=== PATIENT | female | born 1930 | race Caucasian/White ===

== ENCOUNTER 2017-10-23 09:54 | Emergency (ER) | payer MEDICARE, OTHER ==
[~2017-10-23] VITALS: Ht 144.7 cm; Wt 56.7 kg
[~2017-10-23 09:54] MED LIST: ANTIVERT/2525 MG PO; ARICEPT10 MG PO; B12,B-12,B 12500 MC1 PO; BLOOD PRESSURE MED; CHOLESTROL PO; CIPROFLOXACIN250 MG PO; Coumadin5 MG PO; DYAZIDE 25 MG-31 CAP PO; LOPRESSOR25 MG PO; Lopressor25 MG PO; MACROBID100 M1 PO; NASACORT55 MCG/ACT NAS; NORVASC5 MG PO; PRAVACHOL20 MG PO; ZYVOX600 MG PO
[2017-10-23 10:44] VITALS: BP 155/93
[2017-10-23 13:35] LABS: BILIRUBIN NEGATIVE (NEGATIVE); BLOOD NEGATIVE (NEGATIVE); CLARITY CLEAR (CLEAR); COLOR YELLOW (YELLOW); GLUCOSE NEGATIVE (NEGATIVE); KETONE NEGATIVE (NEGATIVE); LEUKO ESTERASE NEGATIVE (NEGATIVE); NITRITE NEGATIVE (NEGATIVE); PH 5.5 (5.0-9.0); UROBILINOGEN 0.2 E.U./dl (0.2-1.0)
[2017-10-23 13:46] LABS: EPITHELIAL CELLS 0-2; WBC 0-2 wbc/hpf (0-5)
== END 2017-10-23 14:03 | disposition home or self-care (01) ==
LOC: ED 09:54
PROVIDERS: Physician Assistant
DX: R07.81 Pleurodynia (principal); Z90.49 Acquired absence of other specified parts of digestive tract; Z90.710 Acquired absence of both cervix and uterus; Z79.899 Other long term (current) drug therapy; Z79.01 Long term (current) use of anticoagulants; Z88.0 Allergy status to penicillin; Z88.2 Allergy status to sulfonamides

== ENCOUNTER 2018-09-21 02:51 | Inpatient (IN) | payer OTHER ==
[2018-09-21] VITALS (13 sets, daily range): BP systolic 130–194; BP diastolic 61–109
[~2018-09-21] VITALS: Ht 157.4 cm; Wt 58.3 kg
[2018-09-21] MEDS ORDERED: ATIVAN0.5 MG PO (03:50)
[2018-09-21] MEDS ORDERED: LOPRESSOR50 M1 PO (03:52)
[2018-09-21] MEDS ORDERED: RISPERIDONE0.25 M2 PO (03:53)
[2018-09-21] MEDS ORDERED: TRAMADOL HCL50 MG PO (03:55)
[2018-09-21] MEDS ORDERED: VITAMIN D5000 UNIT PO (05:42)
[2018-09-21] MEDS ORDERED: PROCTOZONE-HC30 GM R (05:43)
[2018-09-21] MEDS ORDERED: MAPAP500 M1 PO (05:45)
[2018-09-21] MEDS ORDERED: RISAMINE OINTM113 GM T (05:47)
[2018-09-21] MEDS ORDERED: ZOLOFT25 MG PO (05:48)
[2018-09-21] MEDS ORDERED: RIVASTIGMINE TAR3 M1 PO (05:48)
[2018-09-21 06:20] LABS: BASO % 0.4 % (0.0-1.0); EOS % 0.3 % (1.0-4.0); HEMATOCRIT 42.9 % (37.0-47.0); LYMPH % 9.8 % (27.0-41.0); MEAN CELL VOLUME 94.1 fl (81.0-99.0); MEAN CORPUSCULAR HGB 28.5 pg (27.0-31.0); MEAN CORPUSCULAR HGB CONC 30.3 g/dl (33.0-37.0); MEAN PLATELET VOLUME 9.7 fl (9.6-12.3); MONO # 0.7 10*3/uL (0.1-1.0); MONO % 6.9 % (3.0-9.0); NEUT # 8.6 10*3/uL (2.3-7.9); NEUT % 82.1 % (47.0-73.0); PLATELET COUNT AUTOMATED 169 10*3/uL (130-400); RED BLOOD COUNT 4.56 10*6/uL (4.10-5.10); RED CELL DISTRI WIDTH 13.7 % (0-14.5); WHITE BLOOD COUNT 10.5 10*3/uL (4.8-10.8)
[2018-09-21 06:54] LABS: ACT PARTIAL THROMBO TIME 34.8 SECONDS (20.8-31.5); INTERNATIONAL NORM RATIO 1.8 (2.0-3.5)
[2018-09-21 06:55] LABS: ALBUMIN 3.3 gm/dl (3.1-4.5); CREATININE 1.08 mg/dL (0.55-1.02); POTASSIUM 3.8 mmol/L (3.5-5.1)
[2018-09-21 07:06] LABS: FREE T4 0.79 ng/dl (0.76-1.46); THYROID STIM HORMONE (HS) 3.65 uIU/ml (0.358-4.75); TOTAL PROTEIN 7.4 gm/dL (6.4-8.2)
[2018-09-21 08:51] LABS: BILIRUBIN NEGATIVE (NEGATIVE); BLOOD NEGATIVE (NEGATIVE); CLARITY CLEAR (CLEAR); COLOR YELLOW (YELLOW); GLUCOSE NEGATIVE (NEGATIVE); KETONE NEGATIVE (NEGATIVE); LEUKO ESTERASE NEGATIVE (NEGATIVE); NITRITE NEGATIVE (NEGATIVE); SPECIFIC GRAVITY 1.015 (1.005-1.030); UROBILINOGEN 0.2 E.U./dl (0.2-1.0)
[2018-09-21 16:35] LABS: INTERNATIONAL NORM RATIO 1.4 (2.0-3.5)
[2018-09-22] VITALS (10 sets, daily range): BP systolic 121–155; BP diastolic 50–78
[2018-09-22 07:11] LABS: BUN 15 mg/dl (7-24); CHLORIDE 105 mmol/L (98-107); CREATININE 0.94 mg/dL (0.55-1.02); SODIUM 139 mmol/L (136-145)
[2018-09-22 07:12] LABS: POTASSIUM 4.2 mmol/L (3.5-5.1)
[2018-09-22 07:15] LABS: BASO % 0.4 % (0.0-1.0); EOS % 0.4 % (1.0-4.0); HEMATOCRIT 38.9 % (37.0-47.0); HEMOGLOBIN 12.3 g/dl (12.0-16.0); LYMPH # 1.1 10*3/uL (1.3-4.4); LYMPH % 15.7 % (27.0-41.0); MEAN CELL VOLUME 94.2 fl (81.0-99.0); MEAN CORPUSCULAR HGB 29.8 pg (27.0-31.0); MEAN CORPUSCULAR HGB CONC 31.6 g/dl (33.0-37.0); MEAN PLATELET VOLUME 9.5 fl (9.6-12.3); MONO # 0.7 10*3/uL (0.1-1.0); MONO % 9.4 % (3.0-9.0); NEUT # 5.3 10*3/uL (2.3-7.9); NEUT % 73.7 % (47.0-73.0); PLATELET COUNT AUTOMATED 142 10*3/uL (130-400); RED BLOOD COUNT 4.13 10*6/uL (4.10-5.10); RED CELL DISTRI WIDTH 13.9 % (0-14.5); WHITE BLOOD COUNT 7.1 10*3/uL (4.8-10.8)
[2018-09-22 07:38] LABS: INTERNATIONAL NORM RATIO 1.3 (2.0-3.5)
[2018-09-23] VITALS: BP 114/55
[2018-09-23 06:43] LABS: BASO % 0.2 % (0.0-1.0); EOS # 0.1 10*3/uL (0.0-0.4); EOS % 0.6 % (1.0-4.0); HEMATOCRIT 33.4 % (37.0-47.0); HEMOGLOBIN 10.6 g/dl (12.0-16.0); LYMPH # 0.9 10*3/uL (1.3-4.4); LYMPH % 10.3 % (27.0-41.0); MEAN CELL VOLUME 93.3 fl (81.0-99.0); MEAN CORPUSCULAR HGB 29.6 pg (27.0-31.0); MEAN CORPUSCULAR HGB CONC 31.7 g/dl (33.0-37.0); MEAN PLATELET VOLUME 9.9 fl (9.6-12.3); MONO # 1.2 10*3/uL (0.1-1.0); MONO % 13.9 % (3.0-9.0); NEUT # 6.4 10*3/uL (2.3-7.9); NEUT % 74.3 % (47.0-73.0); PLATELET COUNT AUTOMATED 137 10*3/uL (130-400); RED BLOOD COUNT 3.58 10*6/uL (4.10-5.10); RED CELL DISTRI WIDTH 13.9 % (0-14.5); WHITE BLOOD COUNT 8.7 10*3/uL (4.8-10.8)
[2018-09-23 06:58] LABS: BUN 18 mg/dl (7-24); CHLORIDE 103 mmol/L (98-107); CREATININE 0.91 mg/dL (0.55-1.02); INTERNATIONAL NORM RATIO 1.2 (2.0-3.5); SODIUM 137 mmol/L (136-145)
[2018-09-23 08:00] VITALS: BP 129/56
[2018-09-23 12:00] VITALS: BP 103/53
[2018-09-23 16:00] VITALS: BP 115/55
[2018-09-23 20:00] VITALS: BP 91/74
[2018-09-24] VITALS: BP 114/52
[2018-09-24 06:15] LABS: BASO % 0.2 % (0.0-1.0); EOS # 0.1 10*3/uL (0.0-0.4); EOS % 0.8 % (1.0-4.0); HEMATOCRIT 33.3 % (37.0-47.0); HEMOGLOBIN 10.4 g/dl (12.0-16.0); LYMPH # 1.1 10*3/uL (1.3-4.4); LYMPH % 12.3 % (27.0-41.0); MEAN CELL VOLUME 93.8 fl (81.0-99.0); MEAN CORPUSCULAR HGB 29.3 pg (27.0-31.0); MEAN CORPUSCULAR HGB CONC 31.2 g/dl (33.0-37.0); MEAN PLATELET VOLUME 9.7 fl (9.6-12.3); MONO % 10.3 % (3.0-9.0); NEUT # 7.1 10*3/uL (2.3-7.9); NEUT % 75.9 % (47.0-73.0); PLATELET COUNT AUTOMATED 145 10*3/uL (130-400); RED BLOOD COUNT 3.55 10*6/uL (4.10-5.10); RED CELL DISTRI WIDTH 14.2 % (0-14.5); WHITE BLOOD COUNT 9.3 10*3/uL (4.8-10.8)
[2018-09-24 06:43] LABS: INTERNATIONAL NORM RATIO 1.2 (2.0-3.5)
[2018-09-24 08:00] VITALS: BP 120/68
[2018-09-24 12:00] VITALS: BP 125/76
[2018-09-24 16:00] VITALS: BP 112/60
[2018-09-24 20:00] VITALS: BP 140/66
[2018-09-25] VITALS: BP 134/64
[2018-09-25 06:16] LABS: BASO % 0.3 % (0.0-1.0); EOS # 0.1 10*3/uL (0.0-0.4); EOS % 1.3 % (1.0-4.0); HEMATOCRIT 32.2 % (37.0-47.0); HEMOGLOBIN 9.9 g/dl (12.0-16.0); LYMPH % 10.9 % (27.0-41.0); MEAN CELL VOLUME 94.4 fl (81.0-99.0); MEAN CORPUSCULAR HGB CONC 30.7 g/dl (33.0-37.0); MEAN PLATELET VOLUME 10.1 fl (9.6-12.3); MONO # 0.9 10*3/uL (0.1-1.0); MONO % 10.5 % (3.0-9.0); NEUT # 6.7 10*3/uL (2.3-7.9); NEUT % 76.4 % (47.0-73.0); PLATELET COUNT AUTOMATED 172 10*3/uL (130-400); RED BLOOD COUNT 3.41 10*6/uL (4.10-5.10); RED CELL DISTRI WIDTH 14.2 % (0-14.5); WHITE BLOOD COUNT 8.8 10*3/uL (4.8-10.8)
[2018-09-25 06:41] LABS: INTERNATIONAL NORM RATIO 1.4 (2.0-3.5)
[2018-09-25 08:00] VITALS: BP 148/64
[2018-09-25 12:00] VITALS: BP 135/64
[2018-09-25 16:00] VITALS: BP 131/61; BP 160/92
[2018-09-25 20:00] VITALS: BP 154/64
[2018-09-26] VITALS: BP 127/66
[2018-09-26 06:29] LABS: INTERNATIONAL NORM RATIO 2.3 (2.0-3.5)
[2018-09-26 08:00] VITALS: BP 132/68
[2018-09-26 12:00] VITALS: BP 119/60
[2018-09-26 16:00] VITALS: BP 116/74
[2018-09-26 20:00] VITALS: BP 121/68
[2018-09-27] VITALS: BP 103/53
[2018-09-27 06:39] LABS: BASO % 0.5 % (0.0-1.0); EOS # 0.1 10*3/uL (0.0-0.4); EOS % 1.2 % (1.0-4.0); HEMATOCRIT 33.6 % (37.0-47.0); HEMOGLOBIN 10.3 g/dl (12.0-16.0); LYMPH # 0.9 10*3/uL (1.3-4.4); LYMPH % 10.4 % (27.0-41.0); MEAN CELL VOLUME 94.9 fl (81.0-99.0); MEAN CORPUSCULAR HGB 29.1 pg (27.0-31.0); MEAN CORPUSCULAR HGB CONC 30.7 g/dl (33.0-37.0); MEAN PLATELET VOLUME 10.1 fl (9.6-12.3); MONO # 0.9 10*3/uL (0.1-1.0); MONO % 10.2 % (3.0-9.0); NEUT # 6.4 10*3/uL (2.3-7.9); NEUT % 77.2 % (47.0-73.0); PLATELET COUNT AUTOMATED 196 10*3/uL (130-400); RED BLOOD COUNT 3.54 10*6/uL (4.10-5.10); RED CELL DISTRI WIDTH 14.1 % (0-14.5); WHITE BLOOD COUNT 8.3 10*3/uL (4.8-10.8)
[2018-09-27 06:51] LABS: BUN 31 mg/dl (7-24); CHLORIDE 105 mmol/L (98-107); CREATININE 0.88 mg/dL (0.55-1.02); POTASSIUM 3.9 mmol/L (3.5-5.1); SODIUM 140 mmol/L (136-145)
[2018-09-27 07:03] LABS: INTERNATIONAL NORM RATIO 3.2 (2.0-3.5)
[2018-09-27 08:00] VITALS: BP 135/75
[2018-09-27 12:00] VITALS: BP 102/60
[2018-09-27 16:00] VITALS: BP 125/78
[2018-09-27 20:00] VITALS: BP 110/63
[2018-09-28] VITALS: BP 108/75
[2018-09-28 06:36] LABS: BUN 36 mg/dl (7-24); CHLORIDE 106 mmol/L (98-107); CREATININE 1.02 mg/dL (0.55-1.02); POTASSIUM 3.7 mmol/L (3.5-5.1); SODIUM 142 mmol/L (136-145)
[2018-09-28 06:50] LABS: BASO # 0.1 10*3/uL (0.0-0.1); BASO % 0.5 % (0.0-1.0); EOS # 0.1 10*3/uL (0.0-0.4); EOS % 1.3 % (1.0-4.0); HEMATOCRIT 35.3 % (37.0-47.0); HEMOGLOBIN 10.8 g/dl (12.0-16.0); LYMPH # 1.2 10*3/uL (1.3-4.4); LYMPH % 12.6 % (27.0-41.0); MEAN CELL VOLUME 93.6 fl (81.0-99.0); MEAN CORPUSCULAR HGB 28.6 pg (27.0-31.0); MEAN CORPUSCULAR HGB CONC 30.6 g/dl (33.0-37.0); MEAN PLATELET VOLUME 9.9 fl (9.6-12.3); MONO # 0.8 10*3/uL (0.1-1.0); MONO % 8.6 % (3.0-9.0); NEUT # 7.3 10*3/uL (2.3-7.9); NEUT % 76.5 % (47.0-73.0); RED BLOOD COUNT 3.77 10*6/uL (4.10-5.10); RED CELL DISTRI WIDTH 14.2 % (0-14.5); WHITE BLOOD COUNT 9.5 10*3/uL (4.8-10.8)
[2018-09-28 06:51] LABS: PLATELET COUNT AUTOMATED 267 10*3/uL (130-400)
[2018-09-28 07:04] LABS: INTERNATIONAL NORM RATIO 4.4 (2.0-3.5)
[2018-09-28 08:00] VITALS: BP 130/58
[2018-09-28 12:00] VITALS: BP 124/82
[2018-09-28] MEDS ORDERED: NORCO 5-325 TA1 EACH PO (12:16)
[2018-09-28] MEDS ORDERED: COUMADIN4 M2 PO (12:16)
[2018-09-28] MEDS ORDERED: ATIVAN0.5 MG PO (12:16)
[2018-09-28] MEDS ORDERED: TRAMADOL HCL50 MG PO (13:57)
== END 2018-09-28 15:05 | disposition other institution (70) | DRG 481 ==
LOC: ED 02:51 → EDHOLD 04:47 → 5E 04:47
PROVIDERS: Family Medicine; Internal Medicine; Orthopaedic Surgery; ADMIT Internal Medicine
PROC: 0QS604Z Reposition Right Upper Femur with Internal Fixation Device, Open Approach (ICD-10-PCS; principal; 2018-09-22)
DX: S72.141A Displaced intertrochanteric fracture of right femur, initial encounter for closed fracture (principal); E44.1 Mild protein-calorie malnutrition; I48.0 Paroxysmal atrial fibrillation; S41.111A Laceration without foreign body of right upper arm, initial encounter; D72.810 Lymphocytopenia; R79.1 Abnormal coagulation profile; I10 Essential (primary) hypertension; G30.9 Alzheimer's disease, unspecified; F02.80 Dementia in other diseases classified elsewhere, unspecified severity, without behavioral disturbance, psychotic disturbance, mood disturbance, and anxiety; M15.0 Primary generalized (osteo)arthritis; E78.5 Hyperlipidemia, unspecified; Z96.1 Presence of intraocular lens; Z66 Do not resuscitate; Z51.5 Encounter for palliative care; Z96.651 Presence of right artificial knee joint; F41.8 Other specified anxiety disorders; W01.0XXA Fall on same level from slipping, tripping and stumbling without subsequent striking against object, initial encounter; Y93.89 Activity, other specified; Y99.8 Other external cause status; Z68.23 Body mass index [BMI] 23.0-23.9, adult; Y92.128 Other place in nursing home as the place of occurrence of the external cause; Z88.0 Allergy status to penicillin; Z88.2 Allergy status to sulfonamides; Z87.440 Personal history of urinary (tract) infections; Z91.81 History of falling; Z90.710 Acquired absence of both cervix and uterus; Z80.9 Family history of malignant neoplasm, unspecified; Z95.0 Presence of cardiac pacemaker; Z98.49 Cataract extraction status, unspecified eye; Z90.49 Acquired absence of other specified parts of digestive tract; Z82.3 Family history of stroke; Z79.899 Other long term (current) drug therapy; Z79.01 Long term (current) use of anticoagulants

== ENCOUNTER → 2018-10-19 | Outpatient (CLI) | payer OTHER ==
[~2018-10-19] MED LIST changes: +ATIVAN0.5 MG PO; +COUMADIN4 M2 PO; +LOPRESSOR50 M1 PO; +MAPAP500 M1 PO; +NORCO 5-325 TA1 EACH PO; +PROCTOZONE-HC30 GM R; +RISAMINE OINTM113 GM T; +RISPERIDONE0.25 M2 PO; +RIVASTIGMINE TAR3 M1 PO; +TRAMADOL HCL50 MG PO; +VITAMIN D5000 UNIT PO; +ZOLOFT25 MG PO
== END | disposition home or self-care (01) ==
LOC: ORTHO 00:28
DX: S72.144A Nondisplaced intertrochanteric fracture of right femur, initial encounter for closed fracture (principal); X58.XXXA Exposure to other specified factors, initial encounter; Y93.89 Activity, other specified; Y92.89 Other specified places as the place of occurrence of the external cause; Y99.8 Other external cause status

== ENCOUNTER 2018-11-14 01:31 | Emergency (ER) | payer OTHER ==
[~2018-11-14] VITALS: Ht 167.6 cm; Wt 81.6 kg
[2018-11-14 01:37] VITALS: BP 131/70
== END 2018-11-14 04:38 | disposition other institution (70) ==
LOC: ED 01:31
DX: S51.011A Laceration without foreign body of right elbow, initial encounter (principal); M25.561 Pain in right knee; F03.90 Unspecified dementia, unspecified severity, without behavioral disturbance, psychotic disturbance, mood disturbance, and anxiety; I48.91 Unspecified atrial fibrillation; E78.5 Hyperlipidemia, unspecified; I10 Essential (primary) hypertension; Z88.0 Allergy status to penicillin; Z88.2 Allergy status to sulfonamides; Z79.899 Other long term (current) drug therapy; Z79.01 Long term (current) use of anticoagulants; Z90.710 Acquired absence of both cervix and uterus; Z90.49 Acquired absence of other specified parts of digestive tract; Z95.0 Presence of cardiac pacemaker; W19.XXXA Unspecified fall, initial encounter; Y93.89 Activity, other specified; Y92.128 Other place in nursing home as the place of occurrence of the external cause; Y99.8 Other external cause status

== ENCOUNTER 2019-11-17 11:39 | Emergency (ER) | payer OTHER ==
[~2019-11-17] VITALS: Ht 152.4 cm; Wt 43.1 kg
[2019-11-17 11:50] VITALS: BP 117/67
[2019-11-17 13:02] LABS: BILIRUBIN NEGATIVE (NEGATIVE); BLOOD NEGATIVE (NEGATIVE); CLARITY SL CLOUDY (CLEAR); COLOR YELLOW (YELLOW); GLUCOSE NEGATIVE (NEGATIVE); KETONE NEGATIVE (NEGATIVE); SPECIFIC GRAVITY 1.025 (1.005-1.030)
[2019-11-17 13:03] LABS: BACTERIA 1+; LEUKO ESTERASE NEGATIVE (NEGATIVE); MUCOUS 1+; NITRITE NEGATIVE (NEGATIVE); UROBILINOGEN 0.2 E.U./dl (0.2-1.0)
[2019-11-17] MEDS ORDERED: PYRIDIUM200 M1 PO (13:27)
[2019-11-17] MEDS ORDERED: MACROBID100 M1 PO (13:27)
== END 2019-11-17 13:31 | disposition home or self-care (01) ==
LOC: ED 11:39
PROVIDERS: Emergency Medicine
DX: N39.0 Urinary tract infection, site not specified (principal); Z88.0 Allergy status to penicillin; Z88.2 Allergy status to sulfonamides; Z79.01 Long term (current) use of anticoagulants; Z79.899 Other long term (current) drug therapy; Z90.710 Acquired absence of both cervix and uterus; Z90.49 Acquired absence of other specified parts of digestive tract; Z96.661 Presence of right artificial ankle joint

== ENCOUNTER 2020-11-16 20:33 | Emergency (ER) | payer OTHER ==
[~2020-11-16] VITALS: Ht 157.4 cm; Wt 47.6 kg
[~2020-11-16 20:33] MED LIST changes: +PYRIDIUM200 M1 PO
[2020-11-16 21:07] VITALS: BP 144/77
== END 2020-11-16 23:15 | disposition home or self-care (01) ==
LOC: ED 20:33
PROVIDERS: Student in an Organized Health Care Education/Training Program
DX: S00.83XA Contusion of other part of head, initial encounter (principal); I10 Essential (primary) hypertension; M19.90 Unspecified osteoarthritis, unspecified site; I48.91 Unspecified atrial fibrillation; Z90.710 Acquired absence of both cervix and uterus; Z95.0 Presence of cardiac pacemaker; Z98.890 Other specified postprocedural states; Z96.651 Presence of right artificial knee joint; Z90.49 Acquired absence of other specified parts of digestive tract; Z79.899 Other long term (current) drug therapy; Z79.01 Long term (current) use of anticoagulants; Z88.0 Allergy status to penicillin; Z88.2 Allergy status to sulfonamides; W01.198A Fall on same level from slipping, tripping and stumbling with subsequent striking against other object, initial encounter; Y93.89 Activity, other specified; Y92.89 Other specified places as the place of occurrence of the external cause; Y99.9 Unspecified external cause status